=== PATIENT | male | born 1950 | race Caucasian/White ===

== ENCOUNTER → 2017-10-10 | Outpatient (CLI) | payer OTHER, MEDICARE ==
[~2017-10-10] VITALS: Ht 172.7 cm; Wt 81.6 kg
[~2017-10-10] MED LIST: ALDACTONE25 MG PO; ALLOPURINOL100 MG PO; AMLODIPINE BESYL5 MG PO; AMLODIPINE-ATO1 EAC7 PO; ATORVASTATIN CA80 MG PO; CARDURA4 MG PO; CENTRUM SILVER1 EAC3 PO; CHLORTHALIDONE25 MG PO; CLONIDINE HCL0.3 MG PO; CYANOCOBALAM1000 MCG PO; FUROSEMIDE20 MG PO; GLUCOPHAGE850 MG PO; HYDROCHLOROTHIA25 MG PO; LISINOPRIL40 MG PO; LOSARTAN POTAS100 MG PO; OMEPRAZOLE20 MG PO; PRINIVIL20 MG PO; TOPROL XL100 MG PO; VITAMIN D5000 UNIT PO
== END | disposition home or self-care (01) ==
LOC: AMB 08:00
PROVIDERS: Internal Medicine
DX: Z12.11 Encounter for screening for malignant neoplasm of colon (principal); K57.30 Diverticulosis of large intestine without perforation or abscess without bleeding; D12.2 Benign neoplasm of ascending colon; D12.3 Benign neoplasm of transverse colon; K63.5 Polyp of colon; Z86.010 Personal history of colon polyps; K64.8 Other hemorrhoids; E11.9 Type 2 diabetes mellitus without complications; Z79.84 Long term (current) use of oral hypoglycemic drugs; I10 Essential (primary) hypertension; E78.5 Hyperlipidemia, unspecified; Z87.19 Personal history of other diseases of the digestive system; Z87.891 Personal history of nicotine dependence
CPT/HCPCS: 82948; 88305; 93005; J2250